=== PATIENT | male | born 1960 | race African-American/Black ===

== ENCOUNTER 2025-05-12 04:55 | Emergency (ER) | payer SELFPAY ==
[~2025-05-12] VITALS: Ht 185.4 cm; Wt 114.0 kg
[2025-05-12 04:57] VITALS: BP 130/80; PULSE 62; RESP 16; O2SAT 98
== END 2025-05-12 05:25 | disposition left against medical advice (07) ==
LOC: ER 04:55
DX: F60.0 Paranoid personality disorder (principal); F32.A Depression, unspecified; Z53.21 Procedure and treatment not carried out due to patient leaving prior to being seen by health care provider